=== PATIENT | female | born 1960 | race Caucasian/White ===

== ENCOUNTER 2016-04-24 12:25 | Emergency (ER) | payer OTHER ==
[2016-04-24 13:43] LABS: MANUAL DIFF NEEDED? NO
[2016-04-24 14:03] LABS: ALBUMIN 3.9 g/dL (3.5-5.0); CALCIUM 9.3 mg/dL (8.8-10.2); POTASSIUM 3.3 mmol/L (3.5-5.1); TOTAL BILIRUBIN 0.39 mg/dL (0.20-1.00); TOTAL PROTEIN 6.6 g/dL (6.3-8.3)
[2016-04-24 14:04] LABS: BASO% 0.7 % (0.0-0.8); EOS# 0.17 X1000 (0.0-0.7); EOS% 1.9 % (0.0-10.0); HEMATOCRIT 40.2 % (37.0-47.0); IMM GRAN# 0.02 X1000 (0.0-0.04); IMM GRAN% 0.2 % (0.0-0.5); LYMPH# 2.31 X1000 (1.2-3.4); LYMPH% 25.7 % (20.5-51.1); MCH 26.4 PG (27-31); MCHC 32.3 g/dL (33-37); MCV 81.7 FL (81-99); MONO# 0.72 X1000 (0.11-0.59); MPV 10.9 FL (7.4-10.4); NEUT% 63.5 % (42.2-75.2); PLT 393 X1000 (130-400); RBC 4.92 XMIL (4.2-5.4)
--- NOTE | 2016-04-24 14:17 | PROVIDER DOCUMENTATION ---
HPI-General Adult - General Chief Complaint: Weakness Stated Complaint: Weakness Time Seen by Provider: 04/24/16 12:34 Source: patient Allergies/Adverse Reactions: Patient Allergies Allergy/AdvReac Type Severity Reaction Status Date / Time morphine Allergy Intermediate RASH, SOB Verified 04/24/16 14:06 Home Medications: Home Medication List Medication Instructions Recorded Confirmed Last Taken Type Albuterol Sulfate Inhaler 2 puff INH [id number] 06/30/12 04/24/16 04/24/16 11:00 History [Ventolin Hfa] Alprazolam [Xanax] 1 mg PO TID 06/30/12 04/24/16 04/24/16 07:00 History Aspirin 81 mg PO DAILY 06/30/12 04/24/16 04/24/16 07:00 History Fluoxetine [Prozac] 40 mg PO QAM 06/30/12 04/24/16 04/24/16 07:00 History Fluticasone/Salmet 250/50 INH 1 puff INH RTBID 06/30/12 04/24/16 04/24/16 07:00 History [Advair 250/50 Diskus] Levothyroxine [Synthroid] 88 microgm PO QAM 06/30/12 04/24/16 04/24/16 07:00 History Metformin [Glucophage] 500 mg PO BID 06/30/12 04/24/16 04/24/16 07:00 History Montelukast [Singulair] 10 mg PO QAM 06/30/12 04/24/16 04/24/16 07:00 History Pregabalin [Lyrica] 100 mg PO BID 06/30/12 04/24/16 04/24/16 07:00 History Omeprazole [Prilosec] 40 mg PO QAM 12/10/12 04/24/16 04/24/16 07:00 History Furosemide [Lasix] 40 mg PO DAILY #5 tablet 01/04/16 04/24/16 04/24/16 07:00 Rx Cyclobenzaprine HCl [Flexeril] 5 mg PO BID PRN 04/24/16 04/24/16 04/24/16 07:00 History Hydrocodone/APAP 10 mg/325 mg 10 mg PO Q8HR PRN 04/24/16 04/24/16 04/24/16 07: 00 History [[place]-10] Losartan [Cozaar] 50 mg PO DAILY 04/24/16 04/24/16 04/24/16 07:00 History Metolazone 2.5 mg PO EVERY OTHER DAY 04/24/16 04/24/16 04/23/16 07:00 History Potassium Chloride 10 meq PO DAILY 04/24/16 04/24/16 04/24/16 07:00 History Potassium Chloride E.r. [Klor-Con] 10 meq PO DAILY #14 tablet 04/24/16 Unknown Rx Simvastatin [Zocor] 20 mg PO DAILY 04/24/16 04/24/16 04/23/16 20:00 History - History of Present Illness -Gen Adult Nature of Presenting Problems: 55 Y/O F PRESENTED WITH GENERALIZED WEAKNESS THAT STARTED FEW DAYS AGO AND HAS BEEN PRESENT TILL TODAY. SHE ADMITS TO MULIPLE NON SPECIFIC SYMPTOMS INCLUDING HEADACHE, DIZZNESS, BLURRY VISION. Location of Pain/Injury: reports: head Onset/Duration: reports: 3 days ago Timing: reports: still present Context/Activities at Onset: reports: none Modifying Factors: improves with: nothing Associated Symptoms: reports: constipation, weakness Review of Systems - Adult - REVIEW OF SYSTEMS - ADULT Constitutional: reports: no symptoms reported Eyes: reports: blurred vision Ears, Nose, Mouth & Throat: reports: no symptoms reported Cardiovascular: reports: no symptoms reported Respiratory: reports: dyspnea on exertion Gastrointestinal: reports: no symptoms reported Genitourinary: reports: no symptoms reported Musculoskeletal: reports: no symptoms reported Integumentary: reports: no symptoms reported Neurological: reports: dizziness/vertigo Psychiatric: reports: no symptoms reported Endocrine: reports: no symptoms reported Hematologic/Lymphatic: reports: no symptoms reported Allergic/Immunologic: reports: no symptoms reported All Other Systems: Reviewed and Negative Past History - Adult - PAST MEDICAL HISTORY-ADULT Review of Records: reports: Medications Reviewed Major Childhood Illnesses: reports: denies history Cardiovascular: reports: CHF, HTN Respiratory: reports: asthma, COPD Musculoskeletal: reports: chronic pain Neurological: reports: TIA Endocrine/Immune: reports: Diabetes, thyroid disorder - PRIOR SURGERIES/PROCEDURES Surgical/Procedure History: reports: cholecystectomy, BTL, hernia repair - IMMUNIZATION STATUS Childhood Immunizations: See Nurse Assessment Flu Vaccine: See Nurse Assessment - FAMILY HISTORY Family History: reviewed, not pertinent Physical Exam-General - PHYSICAL EXAM-ADULT Initial Vital Signs Reviewed: Yes - CONSTITUTIONAL General Appearance: appears well, no apparent distress - EYES Eyes: PERRL/EOMI - HEAD, EARS, NOSE, MOUTH & THROAT HENMT: normocephalic/atraumatic - NECK Neck: supple - RESPIRATORY Respiratory: lungs clear - CARDIOVASCULAR Cardiovascular: regular rate, rhythm - GASTROINTESTINAL (ABDOMEN) Abdominal Exam: normal bowel sounds, soft - MUSCULOSKELETAL Back Exam: normal inspection Extremity: normal range of motion, pedal edema - NEUROLOGIC Neurologic: no motor/sensory deficits - PSYCHIATRIC Psych/Mental Status: oriented x 3 Progress - PLAN OF CARE/RESULTS Progress/Plan/Lab Results: Vital Signs - 24 hr 04/24/16 12:26 Temperature 98.6 F Pulse Rate 68 Respiratory 19 Rate Blood Pressure 132/68 O2 Sat by Pulse 91 L Oximetry Laboratory Tests 04/24/16 04/24/16 13:18 13:18 WBC 9.00 RBC 4.92 Hgb 13.0 Hct 40.2 MCV 81.7 MCH 26.4 L MCHC 32.3 L RDW Std Deviation 16.9 H Plt Count 393 MPV 10.9 H Immature Gran % (Auto) 0.2 Neut % (Auto) 63.5 Lymph % (Auto) 25.7 [place] % (Auto) 8.0 Eos % (Auto) 1.9 Baso % (Auto) 0.7 Immature Gran # (Auto) 0.02 Neut # (Auto) 5.72 Lymph # (Auto) 2.31 [place] # (Auto) 0.72 H Eos # (Auto) 0.17 Baso # (Auto) 0.06 Sodium 134 L Potassium 3.3 L Chloride 93 L Carbon Dioxide 27 Anion Gap 14 BUN 18 Creatinine 1.4 H Estimated GFR/1.73 m2 39 BUN/Creatinine Ratio 13 Glucose 173 H Calculated Osmolality 274 Calcium 9.3 Total Bilirubin 0.39 AST 16 ALT 17 Alkaline Phosphatase 103 Total Protein 6.6 Albumin 3.9 Globulin 2.7 Albumin/Globulin Ratio 1.4 - EKG 1 Time of EKG reading by physician:: 13:30 EKG Read and Signed by:: Joi Garcia EKG Interpretation (*Must complete 3 of following elements*): Normal Rate: 66 Rhythm: NSR QRS: normal SD Interval: normal - XRAY 1 XRAY Study: Chest Comparison with other Films: no changes Departure - Departure Time of Disposition Order: 15:33 DIAGNOSIS: Weakness Disposition: HOME 01 Certified Medical Emergency: Emergent Condition: Fair Prescriptions: Potassium Chloride E.r. [Klor-Con] 10 meq PO DAILY #14 tablet Referrals: Gwyn Olsen MD [Primary Care Provider] -
--- NOTE | 2016-04-24 14:55 | Diag Imaging Result Document ---
PROCEDURE NAME: CHEST-2 VIEWS - 04/24/2016 CHEST, 2 VIEWS: COMPARISON: 02/03/2016 and 01/30/2016. FINDINGS: Heart size is within normal limits. There is some linear scarring similar to the previous exams. There are no acute changes identified. There is no consolidation, vascular congestion, pleural effusion, or pneumothorax seen. There is thoracic spondylosis noted. IMPRESSION: No evidence of acute disease.
[2016-04-24 15:59] VITALS: BP 118/66
--- NOTE | 2016-04-24 20:31 | ED EKG INTERP ---
EKG Interpretation - EKG Time of EKG reading by physician:: 12:46 EKG Read and Signed by:: Joi Garcia EKG Interpretation (*Must complete 3 of following elements*): Abnormal (Cannot rule out anterior infarct, age undetermined) Rate: 66 Rhythm: NSR Attestation - Scribe Verification/Attestation Scribe:: Jaya Abbasi Acting as Scribe for:: Joi Garcia Scribe documention review:: This chart was documented by a scribe and accurately reflects the service the provider performed and the decisions made by the provider.
== END 2016-04-24 15:57 | disposition home or self-care (01) ==
LOC: EDBD → ED 12:25
DX: R53.1 Weakness (principal); R94.31 Abnormal electrocardiogram [ECG] [EKG]; R51 Headache; R42 Dizziness and giddiness; H53.8 Other visual disturbances; K59.00 Constipation, unspecified; R06.00 Dyspnea, unspecified; R60.0 Localized edema; J45.909 Unspecified asthma, uncomplicated; I50.9 Heart failure, unspecified; I10 Essential (primary) hypertension; J44.9 Chronic obstructive pulmonary disease, unspecified; G89.29 Other chronic pain; E11.9 Type 2 diabetes mellitus without complications; E07.9 Disorder of thyroid, unspecified; Z79.82 Long term (current) use of aspirin; Z79.899 Other long term (current) drug therapy; Z86.73 Personal history of transient ischemic attack (TIA), and cerebral infarction without residual deficits
CPT/HCPCS: 71020; 80053; 82948; 85025